=== PATIENT | female | born 1965 ===

== ENCOUNTER 2017-09-15 10:37 | Inpatient (IN) | payer BC ==
[~2017-09-15] VITALS: Ht 175.3 cm; Wt 74.8 kg
[~2017-09-15 10:37] MED LIST: ANTIVERT25 MG ORAL
[2017-09-15] MEDS ORDERED: Sodium Chloride 500ML 500 ML IV ONE ×2 (10:54→12:45)
[2017-09-15] MEDS ORDERED: Meclizine 25mg tab ORAL ONE ×2 (11:00→12:45)
[2017-09-15 13:05] VITALS: BP 166/101
[2017-09-15] MEDS ORDERED: NKM (13:10)
--- NOTE | 2017-09-15 13:27 | Emergency Room Report ---
History of Present Illness General Chief Complaint: Vertigo Source: Patient, Medical Record Present Illness HPI 52-year-old female presents ED for evaluation. Patient presenting with dizziness which started today. Persistent room spinning. Worse with sudden movement. Notes nausea and vomiting. Denies headache. Notes history of vertigo. Has not required medication in many years now. Denies photophobia or blurry vision. Denies next is fevers or chills. Denies chest pain or shortness of breath. No other aggravating relieving factors. Denies any other associated symptoms Allergies: Coded Allergies: No Known Allergies (Unverified , 05/01/15) Patient History Past Medical History: other - vertigo Past Surgical History: none Pertinent Family History: none Social History: Denies: smoking, alcohol use, drug use Last Menstrual Period: menopause Now: No Immunizations: UTD Reviewed Nursing Documentation: PMH: Agreed, PSxH: Agreed Nursing Documentation-PM Past Medical History: No History, Except For Hx Neurological Problems: Yes - vertigo Review of Systems All Other Systems: negative except mentioned in HPI Physical Exam Vital Signs Date Time Temp Pulse Resp B/P (MAP) Pulse Ox O2 Delivery O2 Flow Rate FiO2 09/15/17 10:42 97.6 82 17 182/85 98 Room Air 97.5 Sp02 EP Interpretation: reviewed, normal General Appearance: alert, GCS 15, non-toxic, mild distress Head: normocephalic, atraumatic Eyes: bilateral eye normal inspection, bilateral eye PERRL ENT: hearing grossly normal, normal pharynx, no angioedema, normal voice Neck: full range of motion, supple/symm/no masses Respiratory: chest non-tender, lungs clear, normal breath sounds, speaking full sentences Cardiovascular #1: regular rate, rhythm, no edema Cardiovascular #2: 2+ carotid (R), 2+ carotid (L), 2+ radial (R), 2+ radial (L) , 2+ dorsalis pedis (R), 2+ dorsalis pedis (L) Gastrointestinal: normal bowel sounds, non tender, soft, non-distended, no guarding, no rebound Rectal: deferred Genitourinary: normal inspection, no CVA tenderness Musculoskeletal: back normal, gait/station normal, normal range of motion, non- tender Neurologic: alert, oriented x3, responsive, motor strength/tone normal, sensory intact, speech normal Psychiatric: judgement/insight normal, memory normal, mood/affect normal, no suicidal/homicidal ideation Reflexes: 3+ bicep (R), 3+ bicep (L), 3+ tricep (R), 3+ tricep (L), 3+ knee (R) , 3+ knee (L) Skin: normal color, no rash, warm/dry, well hydrated Lymphatic: no adenopathy Medical Decision Making Diagnostic Impression: Primary Impression: Vertigo Additional Impression: Dizziness ER Course Hospital Course 52-year-old female presents ED with room spinning dizziness. History of vertigo Differential diagnoses include: vertigo, dehydration, UTI Clinical course Patient placed on stretcher. on cardiac cath rn. After initial history and physical I ordered IV fluids, meclizine, Zofran Patient vomited the meclizine. I ordered IV Valium On reassessment patient states symptoms somewhat improved. Patient given additional meclizine and Zofran but still states she is very dizzy. Unable to walk I believe patient requires admission EKG - NSR, no acute ischemic changes interpreted by me labs pending Case discussed with Dr. Olmos and he agreed to accept the patient to his service for further care and support I. I feel this is a highly complex case requiring extensive working including EKG/Rhythm strip, Xray/CT/US, Blood/urine lab work, repeat exams while in ED, and administration of strong opiates/narcotics for pain control, admission to hospital or close patient follow up. Diagnosis - vertigo, dizziness admitted to floor in serious condition EKG Diagnostic Results Rate: normal Rhythm: NSR ST Segments: no acute changes ASA given to the pt in ED: No Rhythm Strip Diag. Results EP Interpretation: yes Rhythm: NSR, no PVC's, no ectopy Last Vital Signs Date Time Temp Pulse Resp B/P (MAP) Pulse Ox O2 Delivery O2 Flow Rate FiO2 09/15/17 13:05 97.5 72 17 166/101 98 Room Air 97.5 Status: improved Disposition: ADMITTED INPATIENT Condition: Serious Referrals: NOT CHOSEN IPA/,REFERRING (PCP) KEN VERAS M.D. Sep 15, 2017 13:27
[2017-09-15] MEDS ORDERED: Ketorolac 30mg Inj IV ONE (13:30)
[2017-09-15 13:41] LABS: APPEARANCE,URINE CLEAR; BILIRUBIN, URINE NEGATIVE (NEGATIVE); COLOR,URINE PALE YELLOW; GLUCOSE, URINE (UA) NEGATIVE (NEGATIVE); KETONES,URINE NEGATIVE (NEGATIVE); LEUKOCYTE ESTERASE ,URINE NEGATIVE (NEGATIVE); NITRITE,URINE NEGATIVE (NEGATIVE); PH,URINE 8 (4.5-8.0); PROTEIN,URINE NEGATIVE (NEGATIVE); UROBILINOGEN,URINE NORMAL MG/DL (0.0-1.0)
[2017-09-15 13:42] LABS: HEMATOCRIT 44.3 % (37.0-47.0); HEMOGLOBIN 15.2 G/DL (12.0-16.0); MEAN CORPUSCULAR VOLUME 88 FL (80-99); PLATELET COUNT 227 K/UL (150-450); RED BLOOD COUNT 5.03 M/UL (4.20-5.40); RED CELL DISTRIBUTION WIDTH 12.6 % (11.6-14.8); WHITE BLOOD COUNT 10.1 K/UL (4.8-10.8)
[2017-09-15 13:49] LABS: ANION GAP 8 mmol/L (5-15); BLOOD UREA NITROGEN 9 mg/dL (7-18); CALCIUM 8.5 MG/DL (8.5-10.1); CARBON DIOXIDE 30 MMOL/L (21-32); CHLORIDE 103 MMOL/L (98-107); CREATININE 0.6 MG/DL (0.55-1.30); POTASSIUM 3.4 MMOL/L (3.5-5.1); SODIUM 141 MMOL/L (136-145)
[2017-09-15 14:13] LABS: ALANINE AMINOTRANSFERASE 32 U/L (12-78); ALBUMIN 4.1 G/DL (3.4-5.0); ALBUMIN/GLOBULIN RATIO 1.2 (1.0-2.7); ALKALINE PHOSPHATASE 26 U/L (46-116); ASPARTATE AMINO TRANSFERASE 24 U/L (15-37); BILIRUBIN,TOTAL 0.4 MG/DL (0.2-1.0); CKMB 1.5 NG/ML (0.0-3.6); CREATINE KINASE 104 U/L (26-308)
[2017-09-15 15:51] VITALS: BP 148/91
[2017-09-15 17:00] VITALS: BP 165/96
[2017-09-15] MEDS ORDERED: D5 1/2NS 1,000 ML IV SCH (17:30)
[2017-09-15] MEDS: Meclizine 25mg tab ORAL SCH (18:20)
[2017-09-15] MEDS: D5 1/2NS 1,000 ML IV SCH (19:45)
[2017-09-15 20:00] VITALS: BP 146/95
[2017-09-15] MEDS: Zolpidem 5mg tab ORAL PRN (21:18)
[2017-09-16 00:18] VITALS: BP 146/95
[2017-09-16 04:00] VITALS: BP 146/90
[2017-09-16 07:26] LABS: BASOPHILS % (AUTO) 0.9 % (0.0-2.0); EOSINOPHILS % (AUTO) 1.2 % (0.0-3.0); HEMATOCRIT 39.2 % (37.0-47.0); HEMOGLOBIN 13.6 G/DL (12.0-16.0); MEAN CORPUSCULAR VOLUME 87 FL (80-99); PLATELET COUNT 220 K/UL (150-450); RED CELL DISTRIBUTION WIDTH 12.3 % (11.6-14.8); WHITE BLOOD COUNT 5.5 K/UL (4.8-10.8)
[2017-09-16 07:48] LABS: ANION GAP 7 mmol/L (5-15); BLOOD UREA NITROGEN 9 mg/dL (7-18); CALCIUM 8.4 MG/DL (8.5-10.1); CARBON DIOXIDE 29 MMOL/L (21-32); CHLORIDE 103 MMOL/L (98-107); CREATININE 0.8 MG/DL (0.55-1.30); POTASSIUM 3.1 MMOL/L (3.5-5.1); SODIUM 139 MMOL/L (136-145)
[2017-09-16 08:00] VITALS: BP 132/88
[2017-09-16] MEDS: Meclizine 25mg tab ORAL SCH ×3 (09:04→17:34)
--- NOTE | 2017-09-16 10:26 | Neurology Progress Note ---
Objective Physical Exam Last Vital Signs Date Time Temp Pulse Resp B/P (MAP) Pulse Ox O2 Delivery O2 Flow Rate FiO2 09/16/17 04:00 98.5 80 18 146/90 80 Room Air 98.5 Laboratory Tests Test 09/15/17 13:10 09/15/17 17:30 09/16/17 06:45 White Blood Count 10.1 K/UL (4.8-10.8) 5.5 K/UL (4.8-10.8) Red Blood Count 5.03 M/UL (4.20-5.40) 4.50 M/UL (4.20-5.40) Hemoglobin 15.2 G/DL (12.0-16.0) 13.6 G/DL (12.0-16.0) Hematocrit 44.3 % (37.0-47.0) 39.2 % (37.0-47.0) Mean Corpuscular Volume 88 FL (80-99) 87 FL (80-99) Mean Corpuscular Hemoglobin 30.2 PG (27.0-31.0) 30.1 PG (27.0-31.0) Mean Corpuscular Hemoglobin Concent 34.3 G/DL (32.0-36.0) 34.6 G/DL (32.0-36.0) Red Cell Distribution Width 12.6 % (11.6-14.8) 12.3 % (11.6-14.8) Platelet Count 227 K/UL (150-450) 220 K/UL (150-450) Mean Platelet Volume 6.0 FL (6.5-10.1) L 6.3 FL (6.5-10.1) L Neutrophils (%) (Auto) % (45.0-75.0) 57.0 % (45.0-75.0) Lymphocytes (%) (Auto) % (20.0-45.0) 33.0 % (20.0-45.0) Monocytes (%) (Auto) % (1.0-10.0) 8.0 % (1.0-10.0) Eosinophils (%) (Auto) % (0.0-3.0) 1.2 % (0.0-3.0) Basophils (%) (Auto) % (0.0-2.0) 0.9 % (0.0-2.0) Differential Total Cells Counted 100 Neutrophils % (Manual) 92 % (45-75) H Lymphocytes % (Manual) 6 % (20-45) L Monocytes % (Manual) 2 % (1-10) Eosinophils % (Manual) 0 % (0-3) Basophils % (Manual) 0 % (0-2) Band Neutrophils 0 % (0-8) Platelet Estimate Adequate Platelet Morphology Normal Red Blood Cell Morphology Normal Urine Color Pale yellow Urine Appearance Clear Urine pH 8 (4.5-8.0) Urine Specific [place] 1.010 (1.005-1.035) Urine Protein Negative (NEGATIVE) Urine Glucose (UA) Negative (NEGATIVE) Urine Ketones Negative (NEGATIVE) Urine Occult Blood Negative (NEGATIVE) Urine Nitrite Negative (NEGATIVE) Urine Bilirubin Negative (NEGATIVE) Urine Urobilinogen Normal MG/DL (0.0-1.0) Urine Leukocyte Esterase Negative (NEGATIVE) Sodium Level 141 MMOL/L (136-145) 139 MMOL/L (136-145) Potassium Level 3.4 MMOL/L (3.5-5.1) L 3.1 MMOL/L (3.5-5.1) L Chloride Level 103 MMOL/L (98-107) 103 MMOL/L (98-107) Carbon Dioxide Level 30 MMOL/L (21-32) 29 MMOL/L (21-32) Anion Gap 8 mmol/L (5-15) 7 mmol/L (5-15) Blood Urea Nitrogen 9 mg/dL (7-18) 9 mg/dL (7-18) Creatinine 0.6 MG/DL (0.55-1.30) 0.8 MG/DL (0.55-1.30) Estimat Glomerular Filtration Rate > 60 mL/min (>60) > 60 mL/min (>60) Glucose Level 110 MG/DL (74-106) H 121 MG/DL (74-106) H Calcium Level 8.5 MG/DL (8.5-10.1) 8.4 MG/DL (8.5-10.1) L Total Bilirubin 0.4 MG/DL (0.2-1.0) Aspartate Amino Transf (AST/SGOT) 24 U/L (15-37) Alanine Aminotransferase (ALT/SGPT) 32 U/L (12-78) Alkaline Phosphatase 26 U/L (46-116) L Total Creatine Kinase 104 U/L (26-308) Creatine Kinase MB 1.5 NG/ML (0.0-3.6) Creatine Kinase MB Relative Index 1.4 Troponin I 0.000 ng/mL (0.000-0.056) 0.000 ng/mL (0.000-0.056) Total Protein 7.4 G/DL (6.4-8.2) Albumin 4.1 G/DL (3.4-5.0) Globulin 3.3 g/dL Albumin/Globulin Ratio 1.2 (1.0-2.7) Impression/Recommendations Problems: (1) Benign paroxysmal positional vertigo due to bilateral vestibular disorder (2) r/o acoustic neuroma (3) HTN (hypertension), benign Status: unchanged Recommendations #[id number] RUBENS MOYER Sep 16, 2017 10:26
[2017-09-16] MEDS ORDERED: LORazepam Inj 2mg/ml 1ml IV PRN (10:30)
[2017-09-16] MEDS: D5 1/2NS 1,000 ML IV SCH (10:40)
[2017-09-16 12:00] VITALS: BP 145/78
[2017-09-16] MEDS: Dexamethasone 4mg/ml vial IVP SCH ×3 (12:28→23:55)
--- NOTE | 2017-09-16 15:26 | Cardiac Electrophysiology PN ---
Subjective Subjective Cardiology consult dictated [id number] Objective Last 24 Hour Vital Signs Date Time Temp Pulse Resp B/P (MAP) Pulse Ox O2 Delivery O2 Flow Rate FiO2 09/16/17 12:00 98.8 70 18 145/78 99 Room Air 98.8 09/16/17 08:00 98.7 82 18 132/88 97 Room Air 98.7 09/16/17 04:00 98.5 80 18 146/90 80 Room Air 98.5 09/16/17 00:18 97.5 89 18 146/95 96 Room Air 97.5 09/15/17 20:00 97.5 89 18 146/95 96 Room Air 97.5 09/15/17 17:00 97.5 90 18 165/96 96 Room Air 97.5 09/15/17 15:57 97.5 70 16 148/91 98 Room Air 97.5 09/15/17 15:51 97.5 70 16 148/91 98 Room Air 97.5 Intake and Output 09/15/17 09/16/17 19:00 07:00 Intake Total 220 ml Output Total 650 ml Balance -430 ml Intake Oral 160 ml IV Total 60 ml Output Urine Total 400 ml Emesis 250 ml # Voids 2 Laboratory Tests Test 09/15/17 17:30 09/16/17 06:45 Troponin I 0.000 ng/mL (0.000-0.056) White Blood Count 5.5 K/UL (4.8-10.8) Red Blood Count 4.50 M/UL (4.20-5.40) Hemoglobin 13.6 G/DL (12.0-16.0) Hematocrit 39.2 % (37.0-47.0) Mean Corpuscular Volume 87 FL (80-99) Mean Corpuscular Hemoglobin 30.1 PG (27.0-31.0) Mean Corpuscular Hemoglobin Concent 34.6 G/DL (32.0-36.0) Red Cell Distribution Width 12.3 % (11.6-14.8) Platelet Count 220 K/UL (150-450) Mean Platelet Volume 6.3 FL (6.5-10.1) L Neutrophils (%) (Auto) 57.0 % (45.0-75.0) Lymphocytes (%) (Auto) 33.0 % (20.0-45.0) Monocytes (%) (Auto) 8.0 % (1.0-10.0) Eosinophils (%) (Auto) 1.2 % (0.0-3.0) Basophils (%) (Auto) 0.9 % (0.0-2.0) Sodium Level 139 MMOL/L (136-145) Potassium Level 3.1 MMOL/L (3.5-5.1) L Chloride Level 103 MMOL/L (98-107) Carbon Dioxide Level 29 MMOL/L (21-32) Anion Gap 7 mmol/L (5-15) Blood Urea Nitrogen 9 mg/dL (7-18) Creatinine 0.8 MG/DL (0.55-1.30) Estimat Glomerular Filtration Rate > 60 mL/min (>60) Glucose Level 121 MG/DL (74-106) H Calcium Level 8.4 MG/DL (8.5-10.1) LIZ MCLAUGHLIN Sep 16, 2017 15:26
--- NOTE | 2017-09-16 15:45 | History and Physical Report ---
DATE OF ADMISSION: 09/15/2017 ATTENDING PHYSICIAN: Basil Olmos D.O. CONSULTANTS: 1. Rancho Olguin M.D. 2. Patel Mortensen M.D. CHIEF COMPLAINT: Vertigo, nausea, and vomiting. BRIEF HISTORY: This is a 52-year-old female, who lives at home, presented to [place] last night with three days of room spinning, diagnosed with vertigo with nausea and vomiting, admitted to medical floor for further treatment. Currently, little bit better with medications. Room is still spinning somewhat. Slight nausea and vomiting. No complaint. PAST MEDICAL HISTORY: Vertigo, the last time was one and half years ago and was treated in the ER with hospitalization. PAST SURGICAL HISTORY: None. MEDICATIONS: KCl, zolpidem, Antivert, ketorolac, and Zofran. ALLERGIES: Denies. SOCIAL HISTORY: No smoking. No alcohol. No intravenous drug abuse. FAMILY HISTORY: Noncontributory. REVIEW OF SYSTEMS: No chest pain. No shortness of breath. Slight nausea and vomiting. No diarrhea. PHYSICAL EXAMINATION: GENERAL: Calm, slightly anxious in bed, oriented x3, in no acute distress. VITAL SIGNS: Temperature is 98 degrees, pulse 80, respirations 18, and blood pressure 146/90. CARDIOVASCULAR: No murmur. LUNGS: Distant and clear. ABDOMEN: Bowel sounds positive. Nontender. Nondistended. EXTREMITIES: No cyanosis, clubbing, or edema. NEUROLOGIC: The patient moves all extremities, slightly weak. LABORATORY AND DIAGNOSTIC DATA: Shows CBC is normal. BMP shows potassium 3.1, otherwise, BMP is normal. Glucose 121. Urinalysis negative. ASSESSMENT: 1. Vertigo. 2. Nausea and vomiting. 3. Hypokalemia. PLAN: 1. Continue previous medications. 2. Replace potassium. 3. OT, PT, and dietary followup. 4. CBC and BMP in the morning. 5. Antivert and Zofran p.r.n. 6. Dr. Olguin and Dr. Mortensen to follow. Basil Olmos D.O. DR: Akira JOB#: [id number] CC:
[2017-09-16 16:00] VITALS: BP 148/92
[2017-09-16] MEDS ORDERED: Morphine Sulfate 2mg/ml Inj IVP PRN (17:00)
--- NOTE | 2017-09-16 17:00 | Consultation ---
DATE OF CONSULTATION: 09/16/2017 NEUROLOGICAL CONSULTATION CONSULTING PHYSICIAN: Patel Mortensen M.D. REQUESTING PHYSICIAN: Basil Olmos D.O. HISTORY OF PRESENT ILLNESS: This is a 52-year-old female, seen in neurological consultation to evaluate the new onset of severe positional vertigo. The patient informed me that in the last few days, she had no events that would predict her symptomatology. Then, yesterday morning, she woke up around 8 a.m. As she got up, she had severe vertigo sensation, fell down, and had to crawl to the bathroom as she became nauseous and had vomiting. She called her family members and was brought to this facility. The patient continued to have severe spinning sensation, nausea, vomiting; developed some headaches and photophobia. Vital signs on admission included blood pressure 182/85, respirations 17, heart rate of 82, and temperature 97.6 degrees. Started on IV fluids, given meclizine, Zofran, and IV Valium. EKG with normal sinus rhythm. No evidence of ischemic changes noted. Since admission till present, there was no significant improvement noted and Neurology consult was requested. PAST MEDICAL HISTORY: The patient informs me that she had a quite similar episode in 2014, was admitted to emergency room at this hospital, was treated with IV fluids and meclizine, symptoms then resolved within the following two to three days. She denies any other major medical problems. She is not on any treatment. SOCIAL HISTORY: Lives alone. 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 This makes her "very busy and stressed out". No smoking. No alcohol. No drug abuse. FAMILY HISTORY: Noncontributory. REVIEW OF SYMPTOMS: Severe vertigo with any attempt to move her head or open eyes. Feels somewhat more comfortable when lying on her left side. She was unable to get up for the bathroom, so she used a bedside commode. She complains of headaches, nausea, and vomiting. She was unable to eat due to persistent nausea. Denies any unilateral weakness, numbness, or tingling. No chest pain. No palpitations. No respiratory problems. Denies abdominal pain or discomfort. PHYSICAL EXAMINATION: GENERAL: A well-developed, well-nourished female, found to be lying in bed on the left side, covered with a blanket with eyes closed. VITAL SIGNS: Blood pressure 146/90 and temperature 98.5 degrees. HEENT: Head, normocephalic. No evidence of trauma. Eyes, ears, and throat are clear. NECK: Supple. No meningeal signs. MUSCULOSKELETAL: Unremarkable. There are no deformities. Peripheral pulses 1+ and symmetric. MENTAL STATUS: She was drowsy, but arousable. Became fully alert and oriented with no evidence of aphasia or apraxia. Cognitive function normal. CRANIAL NERVE II: The patient was able to briefly open her eyes. Pupils are 2 mm, responding to light and accommodation. Extraocular movements spontaneous. Horizontal nystagmus noted. The patient was unable to maintain eyes opened due to severe nausea and vertigo. Attempt to move her head right or left, up and down caused severe vertigo as well. CRANIAL NERVE V: Normal corneal responses. CRANIAL NERVE VII: No facial asymmetry. CRANIAL NERVE VIII: Normal hearing. CRANIAL NERVES IX THROUGH XII: Tongue is in midline. Symmetric palate elevation. MOTOR EXAMINATION: Normal muscle tone and strength, 5/5 in all extremities. No involuntary movement. Deep tendon reflexes 1+, bilaterally symmetric. SENSORY EXAM: Normal to pinprick and light touch. Coordination, clumsy [id number], [id number] test bilaterally. Gait not tested. IMPRESSION: 1. Acute severe labyrinthitis, rule out benign paroxysmal vertigo. 2. Hypertension. RECOMMENDATIONS: 1. The patient remains bedrest. 2. Obtain MRI of the brain and internal auditory canals to evaluate recurrent vertigo and to rule out acoustic neuroma. 3. IV fluids half normal saline. 4. Meclizine 25 mg q.i.d. 5. Valium IV 10 mg b.i.d. Consider adding steroids if necessary. 6. We will follow with you. Thank you for allowing me to see this interesting patient in neurological consultation. Patel Mortensen M.D. DR: Eugenia JOB#: [id number] CC:
[2017-09-16 20:00] VITALS: BP 134/90
[2017-09-16] MEDS: Zolpidem 5mg tab ORAL PRN (21:28)
[2017-09-17] VITALS: BP 132/88
--- NOTE | 2017-09-17 01:15 | Consultation ---
DATE OF CONSULTATION: 09/16/2017 CARDIOLOGY CONSULTATION CONSULTING PHYSICIAN: Rancho Olguin M.D. REFERRING PHYSICIAN: Basil Olmos M.D. REASON FOR CONSULTATION: Dizziness and presyncope. HISTORY OF PRESENT ILLNESS: The patient is a 52-year-old lady who has history of vertigo came to the emergency room as she was quite dizzy started today. She felt that she was personally spinning with sudden movements. The patient did not have any nausea or vomiting, did not have any headache. The patient has started medication for many years. Denies any blurring of the vision. The patient denies any chest pain, palpitation, or shortness of breath. The patient underwent a 12-lead EKG in the emergency room that showed T-wave inversions suggestive of inferior wall ischemia. Cardiology consultation was requested for further evaluation. At the time of my evaluation, the patient still feels dizzy, but denies any chest pain, palpitation, or shortness of breath. PAST MEDICAL HISTORY: Vertigo. ALLERGIES: No known drug allergies. SOCIAL HISTORY: Does not smoke or drink alcohol. FAMILY HISTORY: Noncontributory. REVIEW OF SYSTEMS: Performed and was negative other than what was mentioned in the history of present illness. PHYSICAL EXAMINATION: VITAL SIGNS: Blood pressure is 145/78, pulse is 70, respirations 18, and she is afebrile. HEAD AND NECK: Showed no JVD. LUNGS: Clear. CARDIOVASCULAR: Shows regular S1 and S2 with no gallop. ABDOMEN: Soft. EXTREMITIES: No pitting edema. Her systolic blood pressure was as high as 165/96. LABORATORY DATA: Her labs show white count of 5.1, hemoglobin 13.2, hematocrit 39.2, and platelet of 220. Sodium 139, potassium 3.1, BUN of 9, creatinine 0.8, and glucose of 121. Troponin negative x2. ASSESSMENT AND PLAN: 1. Abnormal EKG suggestive of inferior wall ischemia. The patient does not have any chest pain, however she has no diagnosed hypertension. We will start the patient on Norvasc 5 mg daily and get an echocardiogram. Repeat EKG for further evaluation. 2. Hypokalemia. Potassium replaced. 3. Dizziness and presyncope likely due to vertigo. We will get a carotid Doppler. Neurologic evaluation is pending. The patient is also on Antivert and Zofran. Thank you very much, Dr. Olmos for allowing me to participate in the care of this patient. Please do not hesitate to contact me for any questions regarding my evaluation. Rancho Olguin M.D. DR: Jo-Ann JOB#: [id number] CC:
[2017-09-17 04:00] VITALS: BP 130/90
[2017-09-17] MEDS: D5 1/2NS 1,000 ML IV SCH ×2 (05:06→21:45)
[2017-09-17] MEDS: Dexamethasone 4mg/ml vial IVP SCH ×3 (05:19→17:52)
[2017-09-17 08:00] VITALS: BP 139/81
[2017-09-17 08:36] LABS: BASOPHILS % (AUTO) 0.5 % (0.0-2.0); HEMATOCRIT 42.5 % (37.0-47.0); HEMOGLOBIN 14.6 G/DL (12.0-16.0); MEAN CORPUSCULAR VOLUME 86 FL (80-99); MONOCYTES % (AUTO) 2.8 % (1.0-10.0); NEUTROPHILS % (AUTO) 83.7 % (45.0-75.0); PLATELET COUNT 248 K/UL (150-450); RED BLOOD COUNT 4.92 M/UL (4.20-5.40); RED CELL DISTRIBUTION WIDTH 12.3 % (11.6-14.8)
--- NOTE | 2017-09-17 09:07 | General Progress Note ---
Assessment/Plan Problem List: (1) Nausea & vomiting ICD Codes: R11.2 - Nausea with vomiting, unspecified SNOMED: 34473475 (2) Vertigo ICD Codes: R42 - Dizziness and giddiness SNOMED: 495827734, 077634703 (3) Dizziness ICD Codes: R42 - Dizziness and giddiness SNOMED: 957211215, [id number] Status: progressing, tolerating diet Assessment/Plan ot pt diet cardio neuro f/u cbc bmp am Subjective Constitutional: Reports: weakness Allergies: Coded Allergies: No Known Allergies (Unverified , 05/01/15) All Systems: reviewed and negative except above Subjective sl room spin, ate ok Objective Last 24 Hour Vital Signs Date Time Temp Pulse Resp B/P (MAP) Pulse Ox O2 Delivery O2 Flow Rate FiO2 09/17/17 04:00 97.6 76 18 130/90 76 Room Air 97.6 09/17/17 00:00 98.2 74 18 132/88 98 Room Air 98.2 09/16/17 20:00 98.0 72 20 134/90 98 Room Air 98.0 09/16/17 16:00 98.2 70 18 148/92 98 Room Air 98.2 09/16/17 12:00 98.8 70 18 145/78 99 Room Air 98.8 Intake and Output 09/16/17 09/17/17 19:00 07:00 Intake Total 300 ml 120 ml Balance 300 ml 120 ml Intake Oral 300 ml 120 ml Laboratory Tests 09/17/17 07:50: White Blood Count 7.0, Red Blood Count 4.92, Hemoglobin 14.6, Hematocrit 42.5, Mean Corpuscular Volume 86, Mean Corpuscular Hemoglobin 29.6, Mean Corpuscular Hemoglobin Concent 34.2, Red Cell Distribution Width 12.3, Platelet Count 248, Mean Platelet Volume 6.1L, Neutrophils (%) (Auto) 83.7H, Lymphocytes (%) (Auto) 13.0L, Monocytes (%) (Auto) 2.8, Eosinophils (%) (Auto) 0.0, Basophils (%) (Auto ) 0.5, Sodium Level [Pending], Potassium Level [Pending], Chloride Level [ Pending], Carbon Dioxide Level [Pending], Blood Urea Nitrogen [Pending], Creatinine [Pending], Estimat Glomerular Filtration Rate [Pending], Glucose Level [Pending], Calcium Level [Pending], Triglycerides Level [Pending], Cholesterol Level [Pending], LDL Cholesterol [Pending], HDL Cholesterol [Pending ], Cholesterol/HDL Ratio [Pending], Thyroid Stimulating Hormone (TSH) [Pending] , Free Thyroxine [Pending] Height (Feet): 5 Height (Inches): 9.00 Weight (Pounds): 165 General Appearance: alert EENT: normal ENT inspection Neck: normal alignment Cardiovascular: normal peripheral pulses, normal rate, regular rhythm Respiratory/Chest: chest wall non-tender, lungs clear, normal breath sounds Abdomen: normal bowel sounds, non tender, soft Extremities: normal inspection Edema: no edema noted Arm (L), no edema noted Arm (R), no edema noted Leg (L), no edema noted Leg (R), no edema noted Pedal (L), no edema noted Pedal (R), no edema noted Generalized Neurologic: responsive, motor weakness Skin: normal pigmentation, warm/dry FRED ARMANDO Sep 17, 2017 09:07
[2017-09-17 09:30] LABS: ANION GAP 10 mmol/L (5-15); BLOOD UREA NITROGEN 11 mg/dL (7-18); CALCIUM 8.8 MG/DL (8.5-10.1); CARBON DIOXIDE 25 MMOL/L (21-32); CHLORIDE 105 MMOL/L (98-107); CREATININE 0.7 MG/DL (0.55-1.30); POTASSIUM 3.7 MMOL/L (3.5-5.1); SODIUM 140 MMOL/L (136-145)
[2017-09-17] MEDS: Meclizine 25mg tab ORAL SCH ×3 (09:30→17:52)
[2017-09-17 09:37] LABS: CHOLESTEROL 213 MG/DL (< 200); HDL CHOLESTEROL 110 MG/DL (40-60); TRIGLYCERIDES 52 MG/DL (30-150)
[2017-09-17 12:00] VITALS: BP 133/80
--- NOTE | 2017-09-17 15:26 | Cardiology Report ---
APPROVED REPORT EXAM: Two-dimensional and M-mode echocardiogram with Doppler and color Doppler. INDICATION Syncope M-Mode DIMENSIONS IVSd1.3 (0.7-1.1cm)Left Atrium (MM)3.1 (1.6-4.0cm) LVDd3.9 (3.5-5.6cm)Aortic Root3.2 (2.0-3.7cm) PWd1.6 (0.7-1.1cm)Aortic Cusp Exc.1.8 (1.5-2.0cm) IVSs2.2 cm LVDs2.3 (2.5-4.0cm) PWs1.9 cm Normal left ventricular chamber size, systolic function and wall motion. Left ventricular ejection fraction estimated to be 70 %. No evidence of left ventricular hypertrophy No pericardial effusion . Right cardiac chamber sizes are within normal limits . Mildly Focal aortic valve sclerosis with adequate cusp excursion. Mildly Thickened mitral valve leaflets with normal excursion. Mitral annulus and aortic root calcification. Normal Pulmonic valve structure. Normal tricuspid valve structure. IVC at size 2.0 with physiological collapse . A color flow and spectral Doppler study was performed and revealed: No aortic regurgitation. Trace mitral regurgitation. Mitral diastolic velocities suggest reduced left ventricular relaxation c/w mild LV diastolic dysfunction (Grade I ). Trace tricuspid regurgitation. Tricuspid systolic velocities suggests peak right ventricular systolic pressure of 24 mmHg, No Pulmonic regurgitation present.
[2017-09-17 15:53] VITALS: BP 153/99
[2017-09-17 20:00] VITALS: BP_SYST 140; BP_SYST 155; BP_DIAS 106; BP_DIAS 83
[2017-09-17] MEDS: Zolpidem 5mg tab ORAL PRN (20:08)
[2017-09-18] VITALS: BP 153/100
[2017-09-18] MEDS: Dexamethasone 4mg/ml vial IVP SCH ×4 (00:05→21:47)
[2017-09-18 04:00] VITALS: BP 156/97
[2017-09-18 08:14] LABS: BASOPHILS % (AUTO) 0.4 % (0.0-2.0); EOSINOPHILS % (AUTO) 0.1 % (0.0-3.0); HEMATOCRIT 43.6 % (37.0-47.0); HEMOGLOBIN 15.1 G/DL (12.0-16.0); LYMPHOCYTES % (AUTO) 15.8 % (20.0-45.0); MEAN CORPUSCULAR VOLUME 88 FL (80-99); MONOCYTES % (AUTO) 4.1 % (1.0-10.0); NEUTROPHILS % (AUTO) 79.7 % (45.0-75.0); PLATELET COUNT 266 K/UL (150-450); RED BLOOD COUNT 4.98 M/UL (4.20-5.40); RED CELL DISTRIBUTION WIDTH 12.6 % (11.6-14.8); WHITE BLOOD COUNT 7.7 K/UL (4.8-10.8)
[2017-09-18 08:15] VITALS: BP 140/93
[2017-09-18 08:27] LABS: ANION GAP 6 mmol/L (5-15); BLOOD UREA NITROGEN 9 mg/dL (7-18); CALCIUM 8.7 MG/DL (8.5-10.1); CARBON DIOXIDE 31 MMOL/L (21-32); CHLORIDE 104 MMOL/L (98-107); CREATININE 0.6 MG/DL (0.55-1.30); POTASSIUM 3.6 MMOL/L (3.5-5.1); SODIUM 141 MMOL/L (136-145)
--- NOTE | 2017-09-18 08:49 | Diagnostic Imaging Report ---
Indication: Severe dizziness and vertigo, vomiting, headache Technique: sagittal T1 fast spin echo, axial T1 and T2 FLAIR PROPELLER, axial T2 FS PROPELLER, T2* GRE, axial diffusion weighted images, post contrast axial and coronal T1 FLAIR PROPELLER images. ADC and exponential ADC maps generated Comparison: none Findings: . No abnormal areas of restricted diffusion to suggest acute infarction. No acute hemorrhage or edema. No mass effect nor midline shift. No abnormal contrast enhancement. There is very mild prominence to the ventricles and extra axial CSF spaces. Visualized orbits and sinuses are unremarkable. . Impression: Negative This agrees with the preliminary interpretation provided overnight by [facility] service.
--- NOTE | 2017-09-18 09:02 | Diagnostic Imaging Report ---
Indication: 52-year-old female inpatient with severe dizziness, vertigo, vomiting and headache Technique: Sagittal T1 FLAIR, pre and postcontrast axial T1 fast spin echo, axial and coronal T2 fast spin-echo, axial 3-D FIESTA images obtained through the temporal bones Comparison: none Findings: No mass associated. Internal auditory canals, middle ear structures appear unremarkable. No unusual contrast enhancement is demonstrated. The optic globes, optic nerves, retroseptal orbits, pituitary, visualized brain appear unremarkable. 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 Incidental finding right small maxillary sinus polyp This agrees with the preliminary interpretation provided overnight by [facility] service.
--- NOTE | 2017-09-18 11:00 | Neurology Progress Note ---
Interim History Interim History ROS Limited/Unobtainable: No Complaints: severe throbbing MOON, positiona vertigo,fotophobia Events: minor improvement Objective Physical Exam Last Vital Signs Date Time Temp Pulse Resp B/P (MAP) Pulse Ox O2 Delivery O2 Flow Rate FiO2 09/18/17 08:15 97.8 75 18 140/93 98 97.8 09/17/17 12:00 Room Air Laboratory Tests Test 09/18/17 06:40 White Blood Count 7.7 K/UL (4.8-10.8) Red Blood Count 4.98 M/UL (4.20-5.40) Hemoglobin 15.1 G/DL (12.0-16.0) Hematocrit 43.6 % (37.0-47.0) Mean Corpuscular Volume 88 FL (80-99) Mean Corpuscular Hemoglobin 30.3 PG (27.0-31.0) Mean Corpuscular Hemoglobin Concent 34.6 G/DL (32.0-36.0) Red Cell Distribution Width 12.6 % (11.6-14.8) Platelet Count 266 K/UL (150-450) Mean Platelet Volume 6.0 FL (6.5-10.1) L Neutrophils (%) (Auto) 79.7 % (45.0-75.0) H Lymphocytes (%) (Auto) 15.8 % (20.0-45.0) L Monocytes (%) (Auto) 4.1 % (1.0-10.0) Eosinophils (%) (Auto) 0.1 % (0.0-3.0) Basophils (%) (Auto) 0.4 % (0.0-2.0) Sodium Level 141 MMOL/L (136-145) Potassium Level 3.6 MMOL/L (3.5-5.1) Chloride Level 104 MMOL/L (98-107) Carbon Dioxide Level 31 MMOL/L (21-32) Anion Gap 6 mmol/L (5-15) Blood Urea Nitrogen 9 mg/dL (7-18) Creatinine 0.6 MG/DL (0.55-1.30) Estimat Glomerular Filtration Rate > 60 mL/min (>60) Glucose Level 118 MG/DL (74-106) H Calcium Level 8.7 MG/DL (8.5-10.1) General: well developed, well nourished, no acute distress Head: normocophalic, atraumatic Neck: no rigidity EENT: benign Neurologic Exam Mental Status: awake, alert, oriented x4, normal cognition, good mathematical skills, normal recent memory, normal remote memory, preserved visuospatial function Speech: normal speech, no dysarthia Language: normal language, no aphasia Cranial Nerve II: other - fotophobia, eyes closed, Cranial Nerves III, IV, : PERRLA, EOMI, pupils Cranial Nerve V: normal facial sensations, temporales function normal, masseters function normal, pterygoids function normal Cranial Nerve VII: no facial asymmetry, normal facial expressions Cranial Nerve VIII: other - vertigo less when supine on L side Cranial Nerve IX: normal palate elevation, gag response Cranial Nerve X: no voice hoarseness Cranial Nerve XI: SCM symmetric, trapezii function normal Cranial Nerve XII: tongue midline, no tongue atrophy/fasciculations Motor System: normal muscle tone, strength 5/5, no involuntary movement, no muscle wasting Sensory: normal pinprick, normal light touch, normal position sense, normal graphesthesia Coordination: normal finger to nose bilaterally, other - posistive romberg Deep Tendon Reflexes: 1+ bicep (L), 1+ bicep (R), 1+ tricep (L), 1+ tricep (R) , 1+ brachioradialis (L), 1+ brachioradialis (R), 1+ knee (L), 1+ knee (R), 1+ ankle (L), 1+ ankle (R) Reflexes: flexor plantar (L), flexor plantar (R) Stance: other Gait: other - slow with assist Impression/Recommendations Problems: (1) Benign paroxysmal positional vertigo due to bilateral vestibular disorder (2) HTN (hypertension), benign Status: progressing, tolerating diet, unchanged Recommendations #[id number] steroid/diamox/antivert/valium MRI brain/IAC normal RUBENS MOYER Sep 18, 2017 11:00
[2017-09-18] MEDS: Meclizine 25mg tab ORAL SCH ×2 (11:12→17:29)
[2017-09-18 12:00] VITALS: BP 151/91
--- NOTE | 2017-09-18 14:03 | General Progress Note ---
Assessment/Plan Problem List: (1) Nausea & vomiting ICD Codes: R11.2 - Nausea with vomiting, unspecified SNOMED: 29503127 (2) Vertigo ICD Codes: R42 - Dizziness and giddiness SNOMED: 914449602, 230267077 (3) Dizziness ICD Codes: R42 - Dizziness and giddiness SNOMED: 739678750, 854561543 Status: stable, progressing, tolerating diet Assessment/Plan ot pt diet cardio neuro f/u cbc bmp am ambulate dc plan Subjective Constitutional: Reports: weakness Allergies: Coded Allergies: No Known Allergies (Unverified , 05/01/15) All Systems: reviewed and negative except above Subjective sl room spin, ate ok Objective Last 24 Hour Vital Signs Date Time Temp Pulse Resp B/P (MAP) Pulse Ox O2 Delivery O2 Flow Rate FiO2 09/18/17 11:13 75 140/93 09/18/17 08:15 97.8 75 18 140/93 98 97.8 09/18/17 04:00 97.9 62 17 156/97 99 97.9 09/18/17 00:00 98.4 67 17 153/100 99 98.4 09/17/17 20:00 98.7 67 18 155/106 99 98.7 09/17/17 15:53 99.2 80 18 153/99 99 99.2 Intake and Output 09/17/17 09/18/17 19:00 07:00 Intake Total 1100 ml Balance 1100 ml Intake Oral 440 ml IV Total 660 ml # Voids 1 Laboratory Tests 09/18/17 06:40: White Blood Count 7.7, Red Blood Count 4.98, Hemoglobin 15.1, Hematocrit 43.6, Mean Corpuscular Volume 88, Mean Corpuscular Hemoglobin 30.3, Mean Corpuscular Hemoglobin Concent 34.6, Red Cell Distribution Width 12.6, Platelet Count 266, Mean Platelet Volume 6.0L, Neutrophils (%) (Auto) 79.7H, Lymphocytes (%) (Auto) 15.8L, Monocytes (%) (Auto) 4.1, Eosinophils (%) (Auto) 0.1, Basophils (%) (Auto ) 0.4, Sodium Level 141, Potassium Level 3.6, Chloride Level 104, Carbon Dioxide Level 31, Anion Gap 6, Blood Urea Nitrogen 9, Creatinine 0.6, Estimat Glomerular Filtration Rate > 60, Glucose Level 118H, Calcium Level 8.7 Height (Feet): 5 Height (Inches): 9.00 Weight (Pounds): 165 General Appearance: alert EENT: normal ENT inspection Neck: normal alignment Cardiovascular: normal peripheral pulses, normal rate, regular rhythm Respiratory/Chest: chest wall non-tender, lungs clear, normal breath sounds Abdomen: normal bowel sounds, non tender, soft Extremities: normal inspection Edema: no edema noted Arm (L), no edema noted Arm (R), no edema noted Leg (L), no edema noted Leg (R), no edema noted Pedal (L), no edema noted Pedal (R), no edema noted Generalized Neurologic: responsive, motor weakness Skin: normal pigmentation, warm/dry FRED ARMANDO Sep 18, 2017 14:03
[2017-09-18] MEDS: D5 1/2NS 1,000 ML IV SCH (14:51)
--- NOTE | 2017-09-18 15:43 | Cardiac Electrophysiology PN ---
Assessment/Plan Assessment/Plan 1. Abnormal EKG suggestive of inferior wall ischemia. The patient does not have any chest pain.Ruled out for [place]. Repeat ECG only Poor R wave progression, Echo EF 70% 2. Hypertension. Continue on Norvasc 5 mg daily 3. Dizziness and presyncope likely due to vertigo. Had MRI brain. Neurologic evaluation in progress. The patient is also on Antivert and Zofran. Subjective Subjective Feeling better. No chest pain or SOB. Dizziness is better. Objective Last 24 Hour Vital Signs Date Time Temp Pulse Resp B/P (MAP) Pulse Ox O2 Delivery O2 Flow Rate FiO2 09/18/17 12:00 98.0 74 18 151/91 97 Room Air 98.0 09/18/17 11:13 75 140/93 09/18/17 08:15 97.8 75 18 140/93 98 97.8 09/18/17 04:00 97.9 62 17 156/97 99 97.9 09/18/17 00:00 98.4 67 17 153/100 99 98.4 09/17/17 20:00 98.7 67 18 155/106 99 98.7 09/17/17 15:53 99.2 80 18 153/99 99 99.2 Intake and Output 09/17/17 09/18/17 19:00 07:00 Intake Total 1100 ml Balance 1100 ml Intake Oral 440 ml IV Total 660 ml # Voids 1 Laboratory Tests Test 09/18/17 06:40 White Blood Count 7.7 K/UL (4.8-10.8) Red Blood Count 4.98 M/UL (4.20-5.40) Hemoglobin 15.1 G/DL (12.0-16.0) Hematocrit 43.6 % (37.0-47.0) Mean Corpuscular Volume 88 FL (80-99) Mean Corpuscular Hemoglobin 30.3 PG (27.0-31.0) Mean Corpuscular Hemoglobin Concent 34.6 G/DL (32.0-36.0) Red Cell Distribution Width 12.6 % (11.6-14.8) Platelet Count 266 K/UL (150-450) Mean Platelet Volume 6.0 FL (6.5-10.1) L Neutrophils (%) (Auto) 79.7 % (45.0-75.0) H Lymphocytes (%) (Auto) 15.8 % (20.0-45.0) L Monocytes (%) (Auto) 4.1 % (1.0-10.0) Eosinophils (%) (Auto) 0.1 % (0.0-3.0) Basophils (%) (Auto) 0.4 % (0.0-2.0) Sodium Level 141 MMOL/L (136-145) Potassium Level 3.6 MMOL/L (3.5-5.1) Chloride Level 104 MMOL/L (98-107) Carbon Dioxide Level 31 MMOL/L (21-32) Anion Gap 6 mmol/L (5-15) Blood Urea Nitrogen 9 mg/dL (7-18) Creatinine 0.6 MG/DL (0.55-1.30) Estimat Glomerular Filtration Rate > 60 mL/min (>60) Glucose Level 118 MG/DL (74-106) H Calcium Level 8.7 MG/DL (8.5-10.1) Objective HEAD AND NECK: Showed no JVD. LUNGS: Clear. CARDIOVASCULAR: Shows regular S1 and S2 with no gallop. ABDOMEN: Soft. EXTREMITIES: No pitting edema. LIZ CARPIO Sep 18, 2017 15:43
[2017-09-18 16:00] VITALS: BP 141/94
[2017-09-18 19:57] VITALS: BP 135/82
[2017-09-18] MEDS: Zolpidem 5mg tab ORAL PRN (21:54)
[2017-09-19] VITALS (7 sets, daily range): BP systolic 128–157; BP diastolic 83–97
[2017-09-19] MEDS: D5 1/2NS 1,000 ML IV SCH ×3 (00:02→23:39)
[2017-09-19 04:43] LABS: BASOPHILS % (AUTO) 0.3 % (0.0-2.0); HEMATOCRIT 41.6 % (37.0-47.0); HEMOGLOBIN 14.2 G/DL (12.0-16.0); MEAN CORPUSCULAR VOLUME 88 FL (80-99); MONOCYTES % (AUTO) 3.5 % (1.0-10.0); NEUTROPHILS % (AUTO) 84.2 % (45.0-75.0); PLATELET COUNT 261 K/UL (150-450); RED BLOOD COUNT 4.71 M/UL (4.20-5.40); RED CELL DISTRIBUTION WIDTH 12.7 % (11.6-14.8); WHITE BLOOD COUNT 8.2 K/UL (4.8-10.8)
[2017-09-19 04:52] LABS: ANION GAP 8 mmol/L (5-15); BLOOD UREA NITROGEN 10 mg/dL (7-18); CALCIUM 8.8 MG/DL (8.5-10.1); CARBON DIOXIDE 25 MMOL/L (21-32); CHLORIDE 107 MMOL/L (98-107); CREATININE 0.7 MG/DL (0.55-1.30); POTASSIUM 3.8 MMOL/L (3.5-5.1); SODIUM 139 MMOL/L (136-145)
[2017-09-19] MEDS: Dexamethasone 4mg/ml vial IVP SCH ×3 (06:19→20:57)
[2017-09-19] MEDS: Meclizine 25mg tab ORAL SCH ×5 (06:19→23:38)
--- NOTE | 2017-09-19 13:37 | Neurology Progress Note ---
Interim History Interim History ROS Limited/Unobtainable: No Complaints: improved still dizzy Events: improvement,ambulating Objective Physical Exam Last Vital Signs Date Time Temp Pulse Resp B/P (MAP) Pulse Ox O2 Delivery O2 Flow Rate FiO2 09/19/17 12:00 97.1 79 20 128/87 94 Room Air 97.1 Laboratory Tests Test 09/19/17 04:00 White Blood Count 8.2 K/UL (4.8-10.8) Red Blood Count 4.71 M/UL (4.20-5.40) Hemoglobin 14.2 G/DL (12.0-16.0) Hematocrit 41.6 % (37.0-47.0) Mean Corpuscular Volume 88 FL (80-99) Mean Corpuscular Hemoglobin 30.2 PG (27.0-31.0) Mean Corpuscular Hemoglobin Concent 34.2 G/DL (32.0-36.0) Red Cell Distribution Width 12.7 % (11.6-14.8) Platelet Count 261 K/UL (150-450) Mean Platelet Volume 6.1 FL (6.5-10.1) L Neutrophils (%) (Auto) 84.2 % (45.0-75.0) H Lymphocytes (%) (Auto) 12.0 % (20.0-45.0) L Monocytes (%) (Auto) 3.5 % (1.0-10.0) Eosinophils (%) (Auto) 0.0 % (0.0-3.0) Basophils (%) (Auto) 0.3 % (0.0-2.0) Sodium Level 139 MMOL/L (136-145) Potassium Level 3.8 MMOL/L (3.5-5.1) Chloride Level 107 MMOL/L (98-107) Carbon Dioxide Level 25 MMOL/L (21-32) Anion Gap 8 mmol/L (5-15) Blood Urea Nitrogen 10 mg/dL (7-18) Creatinine 0.7 MG/DL (0.55-1.30) Estimat Glomerular Filtration Rate > 60 mL/min (>60) Glucose Level 140 MG/DL (74-106) H Calcium Level 8.8 MG/DL (8.5-10.1) General: well developed, well nourished, no acute distress Head: normocophalic, atraumatic Neck: no rigidity EENT: benign Neurologic Exam Mental Status: awake, alert, oriented x4, normal cognition, good mathematical skills, normal recent memory, normal remote memory, preserved visuospatial function Speech: normal speech, no dysarthia Language: normal language, no aphasia Cranial Nerve II: other - fotophobia, eyes closed, Cranial Nerves III, IV, : PERRLA, EOMI, pupils, other - horisontal neystagmus Cranial Nerve V: normal facial sensations, temporales function normal, masseters function normal, pterygoids function normal Cranial Nerve VII: no facial asymmetry, normal facial expressions Cranial Nerve VIII: other - vertigo less when supine on L side, Cranial Nerve IX: normal palate elevation, gag response Cranial Nerve X: no voice hoarseness Cranial Nerve XI: SCM symmetric, trapezii function normal Cranial Nerve XII: tongue midline, no tongue atrophy/fasciculations Motor System: normal muscle tone, strength 5/5, no involuntary movement, no muscle wasting Sensory: normal pinprick, normal light touch, normal position sense, normal graphesthesia Coordination: normal finger to nose bilaterally, other - posistive romberg Deep Tendon Reflexes: 1+ bicep (L), 1+ bicep (R), 1+ tricep (L), 1+ tricep (R) , 1+ brachioradialis (L), 1+ brachioradialis (R), 1+ knee (L), 1+ knee (R), 1+ ankle (L), 1+ ankle (R) Reflexes: flexor plantar (L), flexor plantar (R) Stance: other - +romberg unstable Gait: other - slow with assist,unstable Impression/Recommendations Problems: (1) Benign paroxysmal positional vertigo due to bilateral vestibular disorder (2) HTN (hypertension), benign Status: stable, progressing, tolerating diet Recommendations #[id number] steroid/diamox/antivert/valium MRI brain/IAC normal patient asked to d/c home on po meds off work x 1-2 weeks RUBENS MOYER Sep 19, 2017 13:37
[2017-09-19] MEDS ORDERED: DIAMOX SEQUELS500 MG ORAL (14:05)
[2017-09-19] MEDS ORDERED: MEDROL4 MG (14:09)
[2017-09-19] MEDS ORDERED: MEDROL2 MG PO (14:12)
[2017-09-19] MEDS ORDERED: MEDROL4 M1 PO (14:16)
--- NOTE | 2017-09-19 14:43 | General Progress Note ---
Assessment/Plan Problem List: (1) Nausea & vomiting ICD Codes: R11.2 - Nausea with vomiting, unspecified SNOMED: 17513127 (2) Vertigo ICD Codes: R42 - Dizziness and giddiness SNOMED: 462330766, 033753610 (3) Dizziness ICD Codes: R42 - Dizziness and giddiness SNOMED: 044902479, 643641920 Status: stable, progressing, tolerating diet Assessment/Plan ot pt diet cardio neuro f/u dc plan for am Subjective Constitutional: Reports: weakness Allergies: Coded Allergies: No Known Allergies (Unverified , 05/01/15) All Systems: reviewed and negative except above Subjective sl room spin, ate ok Objective Last 24 Hour Vital Signs Date Time Temp Pulse Resp B/P (MAP) Pulse Ox O2 Delivery O2 Flow Rate FiO2 09/19/17 12:00 97.1 79 20 128/87 94 Room Air 97.1 09/19/17 08:58 75 135/88 09/19/17 08:49 97.5 09/19/17 08:00 98.8 76 18 135/88 98 Room Air 98.8 09/19/17 07:50 97.5 09/19/17 04:00 97.5 64 18 143/93 95 Room Air 97.5 09/19/17 00:00 97.5 63 17 132/90 93 Room Air 97.5 09/18/17 19:57 98.2 70 18 135/82 94 98.2 09/18/17 17:29 98.0 09/18/17 16:00 98.7 73 18 141/94 99 Room Air 98.7 Intake and Output 09/18/17 09/19/17 19:00 07:00 Intake Total 800 ml 600 ml Balance 800 ml 600 ml Intake Oral 800 ml 300 ml IV Total 300 ml # Voids 2 1 # Bowel Movements 1 Laboratory Tests 09/19/17 04:00: White Blood Count 8.2, Red Blood Count 4.71, Hemoglobin 14.2, Hematocrit 41.6, Mean Corpuscular Volume 88, Mean Corpuscular Hemoglobin 30.2, Mean Corpuscular Hemoglobin Concent 34.2, Red Cell Distribution Width 12.7, Platelet Count 261, Mean Platelet Volume 6.1L, Neutrophils (%) (Auto) 84.2H, Lymphocytes (%) (Auto) 12.0L, Monocytes (%) (Auto) 3.5, Eosinophils (%) (Auto) 0.0, Basophils (%) (Auto ) 0.3, Sodium Level 139, Potassium Level 3.8, Chloride Level 107, Carbon Dioxide Level 25, Anion Gap 8, Blood Urea Nitrogen 10, Creatinine 0.7, Estimat Glomerular Filtration Rate > 60, Glucose Level 140H, Calcium Level 8.8 Height (Feet): 5 Height (Inches): 9.00 Weight (Pounds): 165 General Appearance: lethargic EENT: normal ENT inspection Neck: normal alignment Cardiovascular: normal peripheral pulses, normal rate, regular rhythm Respiratory/Chest: chest wall non-tender, lungs clear, normal breath sounds Abdomen: normal bowel sounds, non tender, soft Extremities: normal inspection Edema: no edema noted Arm (L), no edema noted Arm (R), no edema noted Leg (L), no edema noted Leg (R), no edema noted Pedal (L), no edema noted Pedal (R), no edema noted Generalized Neurologic: responsive, motor weakness Skin: normal pigmentation, warm/dry FRED ARMANDO Sep 19, 2017 14:43
--- NOTE | 2017-09-19 16:00 | Cardiac Electrophysiology PN ---
Assessment/Plan Status Narrative Findings: . No abnormal areas of restricted diffusion to suggest acute infarction. No acute hemorrhage or edema. No mass effect nor midline shift. No abnormal contrast enhancement. There is very mild prominence to the ventricles and extra axial CSF spaces. Visualized orbits and sinuses are unremarkable. . Assessment/Plan 1. Abnormal EKG suggestive of inferior wall ischemia. The patient does not have any chest pain. Ruled out for [place]. Repeat ECG only Poor R wave progression, Echo EF 70% 2. Hypertension. Continue Norvasc 5 mg daily 3. Dizziness and presyncope likely due to vertigo. MRI brain no acute findings. Neurology following The patient is also on Antivert and Zofran. Subjective Subjective No chest pain or SOB. No events overnight. Objective Last 24 Hour Vital Signs Date Time Temp Pulse Resp B/P (MAP) Pulse Ox O2 Delivery O2 Flow Rate FiO2 09/19/17 12:00 97.1 79 20 128/87 94 Room Air 97.1 09/19/17 08:58 75 135/88 09/19/17 08:49 97.5 09/19/17 08:00 98.8 76 18 135/88 98 Room Air 98.8 09/19/17 07:50 97.5 09/19/17 04:00 97.5 64 18 143/93 95 Room Air 97.5 09/19/17 00:00 97.5 63 17 132/90 93 Room Air 97.5 09/18/17 19:57 98.2 70 18 135/82 94 98.2 09/18/17 17:29 98.0 09/18/17 16:00 98.7 73 18 141/94 99 Room Air 98.7 Intake and Output 09/18/17 09/19/17 19:00 07:00 Intake Total 800 ml 600 ml Balance 800 ml 600 ml Intake Oral 800 ml 300 ml IV Total 300 ml # Voids 2 1 # Bowel Movements 1 Laboratory Tests Test 09/19/17 04:00 White Blood Count 8.2 K/UL (4.8-10.8) Red Blood Count 4.71 M/UL (4.20-5.40) Hemoglobin 14.2 G/DL (12.0-16.0) Hematocrit 41.6 % (37.0-47.0) Mean Corpuscular Volume 88 FL (80-99) Mean Corpuscular Hemoglobin 30.2 PG (27.0-31.0) Mean Corpuscular Hemoglobin Concent 34.2 G/DL (32.0-36.0) Red Cell Distribution Width 12.7 % (11.6-14.8) Platelet Count 261 K/UL (150-450) Mean Platelet Volume 6.1 FL (6.5-10.1) L Neutrophils (%) (Auto) 84.2 % (45.0-75.0) H Lymphocytes (%) (Auto) 12.0 % (20.0-45.0) L Monocytes (%) (Auto) 3.5 % (1.0-10.0) Eosinophils (%) (Auto) 0.0 % (0.0-3.0) Basophils (%) (Auto) 0.3 % (0.0-2.0) Sodium Level 139 MMOL/L (136-145) Potassium Level 3.8 MMOL/L (3.5-5.1) Chloride Level 107 MMOL/L (98-107) Carbon Dioxide Level 25 MMOL/L (21-32) Anion Gap 8 mmol/L (5-15) Blood Urea Nitrogen 10 mg/dL (7-18) Creatinine 0.7 MG/DL (0.55-1.30) Estimat Glomerular Filtration Rate > 60 mL/min (>60) Glucose Level 140 MG/DL (74-106) H Calcium Level 8.8 MG/DL (8.5-10.1) Objective HEAD AND NECK: No JVD. LUNGS: Clear. CARDIOVASCULAR: Shows regular S1 and S2 with no gallop. ABDOMEN: Soft. EXTREMITIES: No pitting edema. LIZ CARPIO Sep 19, 2017 16:00
--- NOTE | 2017-09-19 16:15 | Cardiology Report ---
APPROVED REPORT EKG Measurement Heart [id number] [place] [id number] [id number] Normal sinus rhythm Cannot rule out Anterior infarct, age undetermined Abnormal ECG
[2017-09-19] MEDS ORDERED: D5 1/2NS 1000ml IV ONE (20:26)
[2017-09-19] MEDS: Zolpidem 5mg tab ORAL PRN (23:14)
[2017-09-20 04:00] VITALS: BP 149/69
[2017-09-20] MEDS: Dexamethasone 4mg/ml vial IVP SCH ×2 (06:01→13:42)
[2017-09-20] MEDS: Meclizine 25mg tab ORAL SCH ×3 (06:01→17:23)
[2017-09-20 08:00] VITALS: BP 139/83
--- NOTE | 2017-09-20 08:04 | General Progress Note ---
Assessment/Plan Problem List: (1) Nausea & vomiting ICD Codes: R11.2 - Nausea with vomiting, unspecified SNOMED: 20444288 (2) Vertigo ICD Codes: R42 - Dizziness and giddiness SNOMED: 211055108, 182004875 (3) Dizziness ICD Codes: R42 - Dizziness and giddiness SNOMED: 502039365, 772511850 Status: stable, progressing, tolerating diet Assessment/Plan ot pt diet cardio neuro f/u dc home Subjective Constitutional: Reports: weakness Allergies: Coded Allergies: No Known Allergies (Unverified , 05/01/15) All Systems: reviewed and negative except above Subjective ate ok, wants to go home Objective Last 24 Hour Vital Signs Date Time Temp Pulse Resp B/P (MAP) Pulse Ox O2 Delivery O2 Flow Rate FiO2 09/20/17 04:00 97.6 68 16 149/69 97 Room Air 97.6 09/19/17 23:45 97.1 67 17 157/97 95 Room Air 97.1 09/19/17 20:00 97.6 68 17 152/96 96 Room Air 97.6 09/19/17 16:00 97.8 73 20 149/83 96 Room Air 97.8 09/19/17 12:00 97.1 79 20 128/87 94 Room Air 97.1 09/19/17 08:58 75 135/88 09/19/17 08:49 97.5 Intake and Output 09/19/17 09/20/17 19:00 07:00 Intake Total 1970 ml 1080 ml Balance 1970 ml 1080 ml Intake Oral 1250 ml 600 ml IV Total 720 ml 480 ml # Voids 3 2 Height (Feet): 5 Height (Inches): 9.00 Weight (Pounds): 165 General Appearance: alert EENT: normal ENT inspection Neck: normal alignment Cardiovascular: normal peripheral pulses, normal rate, regular rhythm Respiratory/Chest: chest wall non-tender, lungs clear, normal breath sounds Abdomen: normal bowel sounds, non tender, soft Extremities: normal inspection Edema: no edema noted Arm (L), no edema noted Arm (R), no edema noted Leg (L), no edema noted Leg (R), no edema noted Pedal (L), no edema noted Pedal (R), no edema noted Generalized Neurologic: responsive, motor weakness Skin: normal pigmentation, warm/dry ARMANDO,FRED Sep 20, 2017 08:04
[2017-09-20 11:38] VITALS: BP 139/87
[2017-09-20 16:00] VITALS: BP 137/89
[2017-09-20] MEDS: D5 1/2NS 1,000 ML IV SCH (16:52)
--- NOTE | 2017-09-20 16:57 | Cardiac Electrophysiology PN ---
Assessment/Plan Status Narrative Findings: . No abnormal areas of restricted diffusion to suggest acute infarction. No acute hemorrhage or edema. No mass effect nor midline shift. No abnormal contrast enhancement. There is very mild prominence to the ventricles and extra axial CSF spaces. Visualized orbits and sinuses are unremarkable. . Assessment/Plan 1. Abnormal EKG suggestive of inferior wall ischemia. No chest pain.Ruled out for [place]. Repeat ECG only Poor R wave progression, Echo EF 70%. Stress test as out patient 2. Hypertension. Continue Norvasc 5 mg daily 3. Dizziness and presyncope likely due to vertigo. MRI brain no acute findings. Neurology following on Antivert and Zofran. DW RN Subjective Subjective No chest pain or SOB. Feeling much better. Wants to go home. Objective Last 24 Hour Vital Signs Date Time Temp Pulse Resp B/P (MAP) Pulse Ox O2 Delivery O2 Flow Rate FiO2 09/20/17 16:25 98.1 09/20/17 16:00 98.1 77 18 137/89 97 Room Air 98.1 09/20/17 15:57 98.0 09/20/17 11:38 98.0 70 18 139/87 96 Room Air 98.0 09/20/17 09:07 81 139/83 09/20/17 08:00 98.0 81 20 139/83 98 Room Air 98.0 09/20/17 04:00 97.6 68 16 149/69 97 Room Air 97.6 09/19/17 23:45 97.1 67 17 157/97 95 Room Air 97.1 09/19/17 20:00 97.6 68 17 152/96 96 Room Air 97.6 Intake and Output 09/19/17 09/20/17 19:00 07:00 Intake Total 1970 ml 1080 ml Balance 1970 ml 1080 ml Intake Oral 1250 ml 600 ml IV Total 720 ml 480 ml # Voids 3 2 Objective HEAD AND NECK: No JVD. LUNGS: Clear. CARDIOVASCULAR: Shows regular S1 and S2 with no gallop. ABDOMEN: Soft. EXTREMITIES: No pitting edema. LIZ CARPIO Sep 20, 2017 16:57
[2017-09-20] MEDS ORDERED: D5 1/2NS 1000ml IV ONE (17:54)
--- NOTE | 2017-09-21 15:44 | Discharge Summary ---
Discharge Summary Hospital Course Date of Admission Sep 15, 2017 at 13:14 Date of Discharge Sep 20, 2017 at 17:55 Admitting Diagnosis intractable vertigo ALVARO Wilsonvell is a 52 year old female who was admitted on Sep 15, 2017 at 13 :14 for Interactable Vertigo Hospital Course [id number] Discharge Discharge Disposition Patient was discharged to Home (01) Discharge Diagnoses: KrystenTherese guillaumeDorcaskristina Dowling NP Sep 21, 2017 15:43
--- NOTE | 2017-09-22 02:15 | Discharge Summary 2 SIG ---
DATE OF ADMISSION: 09/15/2017 DATE OF DISCHARGE: 09/20/2017 CONSULTANTS: 1. Rancho Olguin M.D. 2. Patel Mortensen M.D. BRIEF HOSPITAL COURSE: The patient is a 52-year-old female, who lives at home, presented to [facility] for complaints of three days of dizziness, described as room spinning with nausea and vomiting. She has medical history of vertigo and was treated a year and half ago which resulted with subsequent hospitalization. On evaluation at ED, the patient was vomiting. She was given meclizine and intravenous Valium. She was unable to walk. EKG was in normal sinus rhythm with no acute ischemic changes and blood work was unremarkable. Troponin was negative. She was admitted for evaluation of severe vertigo with nausea and vomiting. She underwent neurological evaluation. She was diagnosed to have acute severe labyrinthitis. She was recommended to remain bedrest. She was given IV hydration and was placed on Valium intravenous 10 mg twice a day and meclizine. She had a 12-lead EKG that showed T-wave inversions suggestive of inferior wall ischemia. Troponins were monitored and was negative. She had episodes of hypokalemia and potassium was replaced. She was started on Norvasc 5 mg for high blood pressure. Echocardiogram done showed ejection fraction of 70% with normal left ventricular size, function, and wall motion. She had an MRI of the face that was essentially unremarkable. Brain MRI was likewise negative. She was given PT and OT. She was also eventually started on Decadron. She was eventually feeling better. She was cleared for discharge home. She was ambulating well. She was advised off work in one to two weeks. DISCHARGE DIAGNOSES: 1. Vertigo, possibly benign paroxysmal positional vertigo due to bilateral vestibular disorder. 2. Hypertension. 3. Abnormal EKG suggestive of inferior wall myocardial infarction, ruled out for myocardial infarction, recommend stress test as outpatient. DISPOSITION: The patient was discharged home. DISCHARGE MEDICATIONS: Continue with Diamox, meclizine, and Medrol Dosepak. DISCHARGE INSTRUCTIONS: Follow up With PCP in a week. Basil Olmos, D.O. I have been assigned to dictate discharge summary on this account and I was not involved in the patient's management. Dorcas Gutiérrez N.P. DR: KIRA JOB#: [id number] CC: ROSEMARIE
--- NOTE | 2017-09-27 16:57 | Cardiology Report ---
APPROVED REPORT EKG Measurement Heart [id number] [place] 160P41 [id number] Normal sinus rhythm T wave abnormality, consider inferior ischemia Abnormal ECG
== END 2017-09-20 17:55 | disposition home or self-care (01) | DRG 149 ==
LOC: EMR 11:30 → 3E 13:14 → EDBEDREQ 15:40 → 3E 09-17 12:47
DX: H81.10 Benign paroxysmal vertigo, unspecified ear (principal); I10 Essential (primary) hypertension; E87.6 Hypokalemia
CPT/HCPCS: 36415; 70543; 70553; 80048; 80053; 80061; 81003; 82550; 82553; 84439; 84443; 84484; 85007; 85025; 93005; 93306; 99285; A9585; J2405; J8499